=== PATIENT | female | born 1950 | race Caucasian/White ===

== ENCOUNTER 2019-04-01 20:35 | Inpatient (IN) | payer OTHER ==
[~2019-04-01] VITALS: Ht 157.5 cm; Wt 83.2 kg
[2019-04-01 19:50] VITALS: BP 161/90
[2019-04-01] MEDS ORDERED: TYLENOL325 MG PO (22:24)
[2019-04-01] MEDS ORDERED: ATORVASTATIN CA80 MG PO (22:25)
[2019-04-01] MEDS ORDERED: AMANTADINE100 M1 PO (22:25)
[2019-04-01] MEDS ORDERED: VITAMIN D32000 UNIT PO (22:26)
[2019-04-01] MEDS ORDERED: PLAVIX 75 MG TA75 MG PO (22:26)
[2019-04-01] MEDS ORDERED: B-125000 MC1 SUBLING (22:31)
[2019-04-01] MEDS ORDERED: GABAPENTIN600 M1 PO (22:32)
[2019-04-01] MEDS ORDERED: MELOXICAM15 MG PO (22:33)
[2019-04-01] MEDS ORDERED: ZESTRIL40 MG PO (22:33)
[2019-04-01] MEDS ORDERED: MOVANTIK25 MG PO (22:34)
[2019-04-01] MEDS ORDERED: ONDANSETRON2 MG/1 ML IV PUSH (22:36)
[2019-04-01] MEDS ORDERED: OXYBUTYNIN 5 MG5 M2 PO (22:36)
[2019-04-01] MEDS ORDERED: MYSOLINE50 MG PO (22:37)
[2019-04-01] MEDS ORDERED: NORVASC 2.5 MG2.5 M1 PO (22:37)
[2019-04-01] MEDS ORDERED: CLONAZEPAM 0.50.5 M1 PO (22:38)
[2019-04-01] MEDS ORDERED: MUCUS ER600 M1 PO (22:39)
[2019-04-01] MEDS ORDERED: HYDRALAZIN20 MG/1 ML IV PUSH (22:40)
[2019-04-01] MEDS ORDERED: OXYCONTIN20 M1 PO (22:41)
[2019-04-01] MEDS ORDERED: PERCOCET 5-3251 EACH PO ×2 (22:42→22:43)
[2019-04-01] MEDS ORDERED: ZANAFLEX4 M2 PO (22:44)
--- NOTE | 2019-04-01 23:23 | NUR ---
PATIENT IS A NEW ADMISSION TO THE UNIT THIS SHIFT. SHE ARRIVED VIA EMS AND IS A DIRECT ADMISSION. PATIENT IS FULLY ALERT AND ORIENTED AND IS ABLE TO PARTICIPATE IN ADMISSION FULLY AND CALL APPROPRIATELY FOR NEEDS. CHIEF COMPLAINT IS PAIN IN LOWER BACK AND NAUSEA WHICH HAVE BOTH BEEN TREATED APPROPRIATELY BY NURSE. PATIENTS LEFT NARE IS PACKED AND THERE IS NO S/S OF ACTIVE BLEEDING. VITAL SIGNS STABLE. NURSE TO COMPLETE ADMISSION AND INITIATE PLAN OF CARE.
[2019-04-01] MEDS ORDERED: BISACODYL10 MG RECTAL (23:31)
[2019-04-01] MEDS ORDERED: AVONEX PEN30 MCG/0.5 IM (23:32)
[2019-04-01] MEDS ORDERED: MIRALAX17 GM PO (23:34)
[2019-04-01] MEDS ORDERED: TUMS200 MG PO (23:35)
[2019-04-01] MEDS ORDERED: VOLTAREN GEL 1100 G1 TOP (23:36)
[2019-04-01 23:51] VITALS: BP 153/71
[2019-04-02 04:06] VITALS: BP 143/92
[2019-04-02 05:48] LABS: HEMATOCRIT 40.7 % (37.0-47.0); HEMOGLOBIN 13.2 gm/dL (12.0-15.0); MCH 29.3 pg (26.0-34.0); MCHC 32.5 g/dL (28.0-37.0); MCV 90.2 fL (80.0-100.0); RBC 4.51 mil/uL (4.20-5.00); RDW 14.7 % (10.5-14.5); WBC 12.6 thou/uL (4.0-11.0)
[2019-04-02 05:54] LABS: CALCIUM 10.1 mg/dL (8.5-10.1); CREATININE 0.7 mg/dL (0.6-1.0); POTASSIUM 3.7 mmol/L (3.5-5.1)
[2019-04-02 07:50] VITALS: BP 142/82
--- NOTE | 2019-04-02 13:07 | NUR ---
assessment: CM REVIEWED CHART AND MET WITH PATIENT AT THE BEDSIDE. PT WAS TRANSFERED FROM [facility] TO [facility] FOR [facility]. ENT IS TO SEE PATIENT. 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 PT REPORTS USING A WHEELCHAIR THERE. PLANS ARE FOR PATIENT TO RETURN TO [facility] ONCE MEDICALLY STABLE. CM CONTACTED ADMISSIONS AND SPOKE WITH ERROL AT [facility] WHO STATES THEY CAN ACCEPT PT BACK ONCE MEDICALLY STABLE. HE STATES IF PATIENT IS MEDICALLY READY FOR DISCHARGE OVER THE WEEKEND TO HAVE THE BEDSIDE RN CONTACT THE MAIN NUMBER AND ASK FOR THE NURSE TO NOTIFY THEM OF DISCHARGE (NATE IN ADMISSION STATING HE CAN COME IN TO HELP FACILITATE WITH DISCHARGE IF NEEDED). FACILITY WILL ARRANGE TRANSPORTATION THROUGH [facility]. DISCHARGE ORDERS WILL NEED TO BE FAXED TO THEM AT FAX: [phone]. PATIENTS EX IS HER DPOA AND IS AGREEABLE WITH PLANS. CM WILL CONTINUE TO FOLLOW TO ASSIST NEEDED.
[2019-04-02 15:21] VITALS: BP 140/72
--- NOTE | 2019-04-02 18:19 | NUR ---
ASSUMED PATIENT CARE AT 0700. A/O X4. ANIL SANDSET IN LEFT NEAR. NO BLEEDING NOTED. SLOW EATTING. SLOWLY TOWARDS POC GOALS.
[2019-04-02 20:35] VITALS: BP 158/93
[2019-04-03 03:25] VITALS: BP 129/74
--- NOTE | 2019-04-03 05:51 | NUR ---
PATIENT REQUESTED PAIN MEDS AT SHIFT CHANGE THAT PARTIALLY RELIEVED PAIN. PT LATER RECEIVED HER SCHEDULED CONTROLLED RELEASE OXYCODONE. PT LATER ADVISD HER PAIN WAS MUCH IMPROVED ADN SHE RESTED QUIETLY THROUGH NOC. PT IS WORKING TOWARDS DC GOALS; NURSING WILL CONTINUE TO [place].
--- NOTE | 2019-04-03 06:55 | NUR ---
Patient asked for a washcloth for here eyes, which nursing oblidged. When nursing went to take the washcloth back, it was observed the Rhino Rocket was dislodged from the patient's right nare. No hemorrhage observed. Nursing will continue to monitor.
[2019-04-03 07:45] VITALS: BP 129/75
[2019-04-03 10:34] LABS: ABSOLUTE NEUTROPHILS 7.5 thou/uL (1.4-8.2); BASOPHILS 0.6 % (0.0-2.0); EOSINOPHILS 0.6 % (0.0-3.0); HEMATOCRIT 37.7 % (37.0-47.0); HEMOGLOBIN 12.4 gm/dL (12.0-15.0); LYMPHOCYTES 27.2 % (24.0-44.0); MCH 29.8 pg (26.0-34.0); MCHC 32.8 g/dL (28.0-37.0); MCV 90.8 fL (80.0-100.0); MONOCYTES 6.2 % (1.0-8.0); PLATELET COUNT 238 thou/uL (150-400); POLYS 65.4 % (36.0-66.0); RBC 4.15 mil/uL (4.20-5.00); RDW 14.6 % (10.5-14.5); WBC 11.5 thou/uL (4.0-11.0)
[2019-04-03 10:45] LABS: PROTIME 10.2 Seconds (9.3-11.4)
[2019-04-03 10:52] LABS: ALBUMIN 3.4 g/dL (3.4-5.0); CALCIUM 9.9 mg/dL (8.5-10.1); CREATININE 0.8 mg/dL (0.6-1.0); POTASSIUM 3.8 mmol/L (3.5-5.1); TOTAL BILIRUBIN 0.3 mg/dL (<0.1-1.0); TOTAL PROTEIN 7.6 g/dL (6.4-8.2)
[2019-04-03 15:54] VITALS: BP 159/91
--- NOTE | 2019-04-03 17:54 | NUR ---
PT VERY WEAK RE MS AND CHRONIC BACK PAIN...TRANSFERRED PIVOT TO WHEELCHAIR WITH HEAVY ASSIST OF 2...
--- NOTE | 2019-04-03 17:55 | NUR ---
PT SENT VIA TRANSPORTER TO [facility]..RX SENT FOR HYDRALAZINE...
== END 2019-04-03 17:45 | DRG 305 ==
LOC: EDBD 20:35 → 3W 20:35
PROVIDERS: Internal Medicine; Nurse Practitioner Family; ADMIT Hospitalist
DX: I16.0 Hypertensive urgency (principal); F11.20 Opioid dependence, uncomplicated; I69.351 Hemiplegia and hemiparesis following cerebral infarction affecting right dominant side; R04.0 Epistaxis; G35 Multiple sclerosis; E78.5 Hyperlipidemia, unspecified; G89.29 Other chronic pain; M54.9 Dorsalgia, unspecified; F41.9 Anxiety disorder, unspecified; N32.81 Overactive bladder; K59.03 Drug induced constipation; T40.2X5A Adverse effect of other opioids, initial encounter; Y92.89 Other specified places as the place of occurrence of the external cause; Z88.0 Allergy status to penicillin; Z88.7 Allergy status to serum and vaccine; Z79.899 Other long term (current) drug therapy
CPT/HCPCS: 10879